=== PATIENT | male | born 1955 | race Caucasian/White ===

== ENCOUNTER 2023-02-21 07:08 | Day surgery (SDC) | payer MEDICARE, OTHER ==
[~2023-02-21] VITALS: Ht 188 cm; Wt 106.8 kg
[2023-02-21] MEDS ORDERED: LISI-892 PO (07:37)
[2023-02-21] MEDS ORDERED: METF-1211 PO (07:37)
[2023-02-21] MEDS ORDERED: CHOL25TA4 PO (07:37)
[2023-02-21] MEDS ORDERED: BENZ-227 PO (07:37)
[2023-02-21] MEDS ORDERED: ATOR40TA28 PO (07:37)
[2023-02-21] MEDS ORDERED: GABA-1216 PO (07:37)
[2023-02-21] MEDS ORDERED: SODIUM CHLORIDE 0.9% 1,000 ML ONE (07:53)
[2023-02-21] MEDS ORDERED: MIDAZOLAM HCL 2 MG/2 ML VIAL ONE (08:14)
[2023-02-21] MEDS ORDERED: FentaNYL CITRATE PF 100 MCG/2 ML VIAL ONE (08:15)
[2023-02-21] MEDS ORDERED: MethylPREDNISolone SOD SUCC 125 MG/2 ML VIAL IVP ONE (09:15)
[2023-02-21 09:41] VITALS: PULSE 82; RESP 18; O2SAT 100
[2023-02-21] MEDS ORDERED: SODIUM CHLORIDE 0.9% 1,000 ML IV ONE (10:15)
[2023-02-21] MEDS ORDERED: BENZOCAINE 20% 50 MCG/SPRAY 57 GM ONE (14:47)
[2023-02-21] MEDS ORDERED: LIDOCAINE 2% 11 ML JELLY ONE (14:47)
[2023-02-21] MEDS ORDERED: LIDOCAINE 4% 50 ML SOLUTION ONE (14:47)
== END 2023-02-21 12:15 | disposition home or self-care (01) ==
LOC: SURGERY 07:08
PROVIDERS: ATTEND Internal Medicine Critical Care Medicine
DX: J38.4 Edema of larynx (principal); B37.0 Candidal stomatitis; I10 Essential (primary) hypertension; Z79.899 Other long term (current) drug therapy; Z98.890 Other specified postprocedural states
CPT/HCPCS: 31623; 88112; 87206; 87101; 87220; 87070; 88305; 31624; 71045; 87015; J3010; J2250; J2930; Q9967; J7030; Z7610